=== PATIENT | female | born 1990 | race Caucasian/White ===

== ENCOUNTER 2020-10-10 10:26 | Inpatient (IN) | payer SELFPAY ==
[2020-10-10] VITALS (64 sets, daily range): BP systolic 122–172; BP diastolic 84–112; PULSE 66–93; RESP 16–20; TEMP 36.7–37.4; O2SAT 96–99; BMI 27.8
[2020-10-10] MEDS: Lactated Ringers 1,000 ML 50 ML IV (09:35)
[2020-10-10 10:16] LABS: Absolute Lymphocyte Count 1.99 X10^3/uL (0.83-4.51); Absolute Neutrophil Count 6.6 X10^3/uL (2.0-7.7); Basophil# 0.04 X10^3/uL; Basophil% 0.4 % (0-1); Eosinophil# 0.03 X10^3/uL; Eosinophils% 0.3 % (0-5); Hematocrit 49.4 % (37-47); Hemoglobin 16.4 g/dL (12.0-15.0); Lymphocyte # 1.99 X10^3/ul (0.83-4.51); Lymphocyte % 21.2 % (19-41); Mean Corp Hgb Conc 33.2 g/dL (32-36); Mean Corpuscular Hgb 30.4 pg (27.0-32.0); Mean Corpuscular Volume 91.7 fL (81-99); Mean Platelet Vol. 10.9 fl (6.2-12.0); Monocyte# 0.71 X10^3/uL; Monocyte% 7.6 % (0-10); NRBC Flagged by Analyzer 0 % (0-5); Neutrophil % 70.2 % (47-70); Platelet Count 193 K/mm3 (150-450); RBC Distribution Width SD 39.8 fl (35.1-43.9); Red Blood Count 5.39 M/mm3 (4.2-5.4); White Blood Count 9.4 K/mm3 (4.4-11.0)
--- NOTE | 2020-10-10 10:17 | NURSING ---
[id number]- pt started seeing kaushal willett in august 06 2020 for this
[2020-10-10] MEDS: Labetalol (Prefilled) 20 MG/4 ML IV (10:28)
[2020-10-10] MEDS: Magnesium Sulfate 4gm/100mL 4 GM/100 ML IV.SOLN. IV (10:33)
--- NOTE | 2020-10-10 10:45 | PCM.HP.BLA ---
History and Physical Date of Admission: 10/10/20 Chief complaint: Decreased movement History present illness: 29-year-old G 10 P8 at 35 weeks and 0 days with MIAH: 11/14/2020 by LMP. Patient arrives from [employer] office with 1 week of malaise found to have blood pressures 180s/110s earlier this week treated by [employer] with oral magnesium and increased protein in her diet. Patient began with decreased movement 1 week ago. At [employer] office found to have no heart tones. Patient denies headache, visual changes, chest pain, shortness of breath, right upper quadrant pain. also complicated by previous children with unknown disabilities patient describes that they cannot walk and they have mental retardation Obstetric history: G1-G2 at term G3: Primary section for a prolapsed cord G4-8: / G9: SAB G10: Current Past medical history: Possible chronic hypertension Medications: None Past surgical history: Primary section Allergies: No known drug allergies Social history: Denies smoking, alcohol use, drug use Family history: Denies history DVT or PE Review of systems: Besides above pertinent positives a full review of systems was performed and found to be negative Physical exam: Vital signs: Blood pressure 152/97 pulse 86 SpO2 97% General: Normal-appearing, mild distress HEENT: Normocephalic atraumatic no cervical adenopathy Cardiac/respiratory: Nonlabored breathing, no use of accessory muscles Abdomen: Soft, nontender, gravid. Negative right upper quadrant pain Pelvic exam: Cervical exam 3/60/-3. AROM minimal to no fluid Extremities: No peripheral edema normal peripheral pulses Psych: Normal affect normal demeanor nonpressured speech Bedside ultrasound: Cephalic. No heart tones. Anhydramnios. Assessment plan: 29-year-old G 10 P8 at 35 weeks and 0 days arrives with demise seen by [employer]. Uncertain if earlier with P PROM versus chronic anhydramnios. Educated patient on demise and need for induction of labor. AROM as above, will start Pitocin for induction. Poor records, based on current vitals severe range blood pressures not diagnostic of severe preeclampsia based on severe range blood pressures. For labs now, 20 mg IV labetalol. We will consider starting p.o. labetalol. panel ordered. With coag shortage will hold on coags unless needed for treatment purposes. Educated patient on risks for chorioamnionitis. Educated patient on various options. Patient stated understanding wished proceed. All questions were answered.
[2020-10-10 10:53] LABS: ALB/GLOB Ratio 0.7 RATIO (0.9-2.4); AST(SGOT) 50 U/L (15-37); Alanine Aminotransfer ALT/SGPT 47 U/L (13-56); Albumin, Serum 2.9 g/dL (3.2-5.0); Alkaline Phosphatase 291 U/L (45-117); Anion Gap 9 (5-15); BUN 14 mg/dL (7-18); BUN/Creat Ratio 19.6 RATIO (10-20); Calcium,Total 9.3 mg/dL (8.5-10.1); Chloride 105 mmol/L (98-107); Creatinine, Serum 0.72 mg/dL (0.55-1.02); EST Glomerular Filtration Rate 101 mL/min (>60); Est Glom Filt Rate - Afr Amer 122 mL/min (>60); Estimated Creatinine Clearance 89.54 ml/min; Globulin 4.4 g/dL (2.2-4.2); Glucose 86 mg/dL (74-106); LDH 379 U/L (84-246); Potassium 3.8 mmol/L (3.5-5.1); Protein, Total 7.3 g/dL (6.4-8.2); Sodium Level 139 mmol/L (136-145)
[2020-10-10] MEDS: Magnesium Sulfate 20 GM/500 ML BAG IV (10:57)
[2020-10-10 11:00] LABS: Rubella IgG Reactive (Nonreactive); Syphilis Antibodies Non-reactive
[2020-10-10 11:18] LABS: HIV - WCH Non-Reactive (Nonreactive); Hepatitis B Surface Antigen Non-Reactive (Nonreactive); Hepatitis C Antibody Non-Reactive (Nonreactive)
[2020-10-10 11:55] LABS: Mucous, Urine 0 SEEN /hpf (<or=2+)
[2020-10-10] MEDS: Oxytocin 30 units/NS 500 ml 30 UNITS/500 ML IV.SOLN IV (12:02)
[2020-10-10 12:03] LABS: Color, Urine Yellow (Yellow); Glucose, Dipstick Normal (Normal); Ketone-Dipstick Negative (Negative); Leukocyte Esterase-Dipstick 500 /ul (Negative); Nitrite-Dipstick Negative (Negative); Occult Blood-Urine 150 /ul (Negative); Protein-Dipstick 100 mg/dl (Negative); Specific Gravity, Urine 1.015 (1.002-1.030); Urine Bilirubin Dipstick Negative (Negative); Urine Clarity Sl. Cloudy (Clear); Urine Urobilinogen Normal (Normal)
[2020-10-10] MEDS: Labetalol 100 MG Tablet PO (12:09)
[2020-10-10 12:10] LABS: Bacteria 1+ /hpf (None Seen); Red Blood Cells-Urine 10-25 SEEN /hpf (0-5); Squamous Epithelial Cells - UA 0-5 SEEN /hpf (5-10); White Blood Cells 25-50 SEEN /hpf (0-5)
[2020-10-10 12:15] LABS: Amphetamine Urine VISTA NEGATIVE (<1000 ng/mL); Barbiturate Urine VISTA NEGATIVE (< 200 ng/mL); Benzodiazepine Urine VISTA NEGATIVE (< 200 ng/mL); Cocaine Urine VISTA NEGATIVE (< 300 ng/mL); Ecstacy Urine VISTA NEGATIVE (< 500 ng/mL); Methadone Urine VISTA NEGATIVE (< 300 ng/mL); PCP Urine VISTA NEGATIVE (< 25 ng/mL); THC Urine VISTA NEGATIVE (< 50 ng/mL); Vista UDS pH Range 6
[2020-10-10 12:53] LABS: Protein, Urine (Random) 80.9 mg/dL (<11.9); Protein:Creat Ratio 2512 mg/g CRE (0-200)
[2020-10-10 13:23] LABS: Chlamydia Trachomatis by PCR Negative (Negative); Group B Strep DNA By PCR Negative (Negative); Internal Control PASS; Neisserai gonorrhoeae by PCR Negative (Negative); Probe Check PASS; Sample Adequacy Control PASS; Specimen Processing Control PASS
[2020-10-10] MEDS: Oxytocin 30 units/NS 500 ml 30 UNITS/500 ML IV.SOLN 334 UNITS IV (16:03)
--- NOTE | 2020-10-10 16:19 | EX.PCM.OBRPT ---
Vaginal Delivery Findings Description of Procedure: Arrived to room with precipitous delivery and baby delivered, upon arrival baby in mom's arms. During initial evaluation placenta delivered spontaneously while in the room. IV Pitocin started. Cord cut clamped. Placenta with signs of abruption grade 4 placenta, family declines to send placenta to pathology risk benefits alternatives discussed. No lacerations noted. EBL 250 cc. Patient's family declined autopsy. Upon evaluation only obvious pathology noted was cleft lip. Educated family on finding.
--- NOTE | 2020-10-10 17:39 | PCM.PN.OB ---
Subjective Subjective Patient overall feeling well. Denies headaches, visual changes, chest pain, shortness of breath, right upper quadrant pain. Objective Data Objective Data Vital Signs: Vital Signs Temp Pulse Resp BP Pulse Ox 98.6 F 78 16 158/96 H 98 10/10/20 16:36 10/10/20 17:33 10/10/20 16:29 10/10/20 17:33 10/10/20 16:47 Oxygen Delivery Method Room Air Weight: 152 lb Body Mass Index (BMI) 27.8 Intake & Output: Intake and Output for Last 24 Hours 10/08/20 10/09/20 10/10/20 23:59 23:59 23:59 Intake Total 549.60 / 549.60 Balance 549.60 / 549.60 Lab / Micro Data Result Diagrams: 10/10/20 09:35 10/10/20 09:35 Labs: Laboratory Results - last 24 hr 10/10/20 09:35: WBC 9.4, RBC 5.39, Hgb 16.4 H, Hct 49.4 H, MCV 91.7, MCH 30.4, MCHC 33.2, RDW Std Deviation 39.8, RDW Coeff of Babita 12.0, Plt Count 193, MPV 10.9, Immature Gran % (Auto) 0.300, Neut % (Auto) 70.2 H, Lymph % (Auto) 21.2, Mason % (Auto) 7.6, Eos % (Auto) 0.3, Baso % (Auto) 0.4, Absolute Neuts (auto) 6.6, Absolute Lymphs (auto) 1.99, Nucleated RBC % 0 10/10/20 09:35: Syphilis Total Ab Non-reactive, Rubella IgG Antibody Reactive 10/10/20 09:35: Blood Type B POSITIVE, Antibody Screen NEGATIVE 10/10/20 09:35: Sodium 139, Potassium 3.8, Chloride 105, Carbon Dioxide 25.0, Anion Gap 9, BUN 14, Creatinine 0.72, Estim Creat Clear Calc 89.54, Est GFR (MDRD) Af Amer 122, Est GFR (MDRD) Non-Af 101, BUN/Creatinine Ratio 19.6, Glucose 86, Calcium 9.3, Total Bilirubin 0.60, AST 50 H, ALT 47, Alkaline Phosphatase 291 H, Lactate Dehydrogenase 379 H, Total Protein 7.3, Albumin 2.9 L, Globulin 4.4 H, Albumin/Globulin Ratio 0.7 L 10/10/20 09:50: Hep Bs Antigen Non-Reactive, Hepatitis C Antibody Non-Reactive, HIV 1&2 Antibody Non-Reactive 10/10/20 09:50: Chlam trachomat DNA PCR Negative, N.gonorrhoeae DNA (PCR) Negative 10/10/20 09:50: Group B Strep DNA Negative, Specimen Comment Not Reportable 10/10/20 11:30: Urine Opiates Screen NEGATIVE, Urine Methadone Screen NEGATIVE, Ur Barbiturates Screen NEGATIVE, Ur Phencyclidine Scrn NEGATIVE, Ur Amphetamines Screen NEGATIVE, U Methamphetamin-MDMA NEGATIVE, U Benzodiazepines Scrn NEGATIVE, Urine Cocaine Screen NEGATIVE, U Cannabinoids Screen NEGATIVE, Ur Drug Screen Comment 10/10/20 11:30: Urine Color Yellow, Urine Clarity Sl. Cloudy, Urine pH 6.0, Ur Specific [place] 1.015, Urine Protein 100 H, Urine Glucose (UA) Normal, Urine Ketones Negative, Urine Occult Blood 150 H, Urine Nitrite Negative, Urine Bilirubin Negative, Urine Urobilinogen Normal, Ur Leukocyte Esterase 500 H, Urine RBC 10-25 SEEN, Urine WBC 25-50 SEEN, Ur Squamous Epith Cells 0-5 SEEN, Urine Bacteria 1+, Urine Mucus 0 SEEN 10/10/20 11:30: U Random Total Protein 80.9 H, Urine Creatinine 32.20, Protein/Creatinin Ratio 2512 H Physical Exam Const alert, oriented x3, average body habitus and well nourished HEENT normocephalic and moist oral mucous membranes Head and Scalp: atraumatic Neck full ROM Resp normal respiratory effort, no retractions and no use of accessory muscles GI normal to inspection, nondistended, normoactive bowel sounds Extremity normal to inspection, full ROM and no clubbing, cyanosis or edema Psych mental status grossly normal, affect normal, speech normal and activity/motor behavior normal Assessment & Plan (1) demise: PLAN: Patient seen and examined. Requesting to be discharged home. Patient a few hours status post of 35-week demise. Also complicated by preeclampsia with severe features based on severe range blood pressures currently on magnesium and treated with labetalol 100 mg twice daily p.o. educated patient on the need for 24 hours of magnesium and continue monitoring of blood pressures to avoid stroke, [place], seizures. Educated patient on magnesium treatment. Patient and FOB state understanding but wished to proceed with discharge home, will sign out AMA. Office follow-up in 1 week for blood pressure check, will continue labetalol 100 mg twice daily. Given blood pressure cuff parameters at home. Reinforced importance of staying for further monitoring, patient and FOB declined.
--- NOTE | 2020-10-10 20:24 | NURSING ---
1659- weight was 1625gms 3# 8oz, 16.25 inches long,with head circumferance of 10.5 inches
== END 2020-10-10 20:00 | disposition home or self-care (01) | DRG 807 ==
LOC: WPOUT 10:26 → WP 10:27
PROVIDERS: Admitting Provider Obstetrics & Gynecology; PCP Family Medicine; Visit Provider Obstetrics & Gynecology
DX: O36.4XX0 Maternal care for intrauterine death, not applicable or unspecified (principal); Z37.1 Single stillbirth; O14.14 Severe pre-eclampsia complicating childbirth; O34.219 Maternal care for unspecified type scar from previous cesarean delivery; O62.3 Precipitate labor; Z3A.35 35 weeks gestation of pregnancy
CPT/HCPCS: 59050; 76815; 80053; 80307; 81001; 82570; 83615; 84156; 85025; 86703; 86762; 86780; 86803; 86850; 86900; 86901; 87081; 87340; 87491; 87591; 87653; 99218; J7120; G0378